=== PATIENT | male | born 1990 | race Caucasian/White ===

== ENCOUNTER 2017-05-22 10:44 | Emergency (ER) | payer OTHER ==
[2017-05-22 10:51] VITALS: BP 118/71
--- NOTE | 2017-05-22 10:57 | UC ---
Upper Extremity HPI - HPI Summary HPI Summary: 26 year old male presents with complains of right wrist abrasion. - History of Current Complaint Chief Complaint: [employer] Stated Complaint: RIGHT WRIST SKIN COMPLAINT Time Seen by Provider: 05/22/17 10:53 Hx Obtained From: Patient Onset/Duration: Sudden Onset Severity Initially: Moderate Severity Currently: Moderate Pain Scale Used: 0-10 Numeric - 5 - Allergies/Home Medications Allergies/Adverse Reactions: Allergies Allergy/AdvReac Type Severity Reaction Status Date / Time No Known Allergies Allergy Verified 05/22/17 10:51 PMH/Surg Hx/FS Hx/Imm Hx Previously Healthy: Yes - Surgical History Surgical History: None - Social History Alcohol Use: Weekly Substance Use Type: None Smoking Status (MU): Never Smoked Tobacco - Immunization History Most Recent Influenza Vaccination: yes 2016 Most Recent Tetanus Shot: unknown Review of Systems Constitutional: Negative Skin: Negative, Other - right wrist abrasion Eyes: Negative ENT: Negative Respiratory: Negative Cardiovascular: Negative Gastrointestinal: Negative Genitourinary: Negative Motor: Negative Neurovascular: Negative Musculoskeletal: Negative Neurological: Negative Psychological: Negative All Other Systems Reviewed And Are Negative: Yes Physical Exam Triage Information Reviewed: Yes Vital Signs: Initial Vital Signs Temp 36.4 C 05/22/17 10:48 Pulse 88 05/22/17 10:48 Resp 14 05/22/17 10:48 BP 118/71 05/22/17 10:48 Pulse Ox 100 05/22/17 10:48 Vital Signs Reviewed: Yes Eye Exam: Normal ENT Exam: Normal Dental Exam: Normal Neck exam: Normal Neck: Positive: 1 Respiratory Exam: Normal Cardiovascular Exam: Normal Abdominal Exam: Normal Musculoskeletal Exam: Normal Neurological Exam: Normal Psychological Exam: Normal Skin: Positive: Other - right wrist abrasion Upper Extremity Course/Dx - Differential Dx/Diagnosis Provider Diagnoses: right wrist abrasion Discharge - Discharge Plan Condition: Stable Disposition: HOME Prescriptions: Cephalexin CAP* [Keflex CAP*] 500 mg PO TID #30 cap Patient Education Materials: Abrasion (ED) Referrals: Non Staff,Doctor [Primary Care Provider] -
[2017-05-22] MEDS ORDERED: Tetan/Diph/Pertus SYR(Tdap)* 0.5 ML SYR(BOOSTRIX) use SYR IM ONE (10:59)
== END 2017-05-22 11:17 | disposition home or self-care (01) ==
LOC: UCCORT 10:44
DX: S60.811A Abrasion of right wrist, initial encounter (principal); X58.XXXA Exposure to other specified factors, initial encounter; Y92.9 Unspecified place or not applicable
CPT/HCPCS: 90471; 90715; 99202; G0463